=== PATIENT | female | born 1985 | race Two or more races ===

== ENCOUNTER 2025-02-27 13:39 | Outpatient (CLI) | payer OTHER | END 2025-02-27 13:54 | disposition home or self-care (01) | LOC: SONOGRAMA 13:39 | PROVIDERS: ATTEND Physical Medicine & Rehabilitation | DX: S46.291A Other injury of muscle, fascia and tendon of other parts of biceps, right arm, initial encounter (principal); M75.21 Bicipital tendinitis, right shoulder ==